=== PATIENT | female | born 1970 | race Caucasian/White ===

== ENCOUNTER 2016-06-02 09:55 | Emergency (ER) | payer OTHER ==
[~2016-06-02] VITALS: Wt 92.0 kg
[~2016-06-02 09:55] MED LIST: CEPH-443 PO; D-ME473S18 PO; DOCU-144 PO; IBUP-1542 PO; METF500T4 PO; OXYC-279 PO; TRAM-40 PO; TRAM50TA2 PO
[2016-06-02] MEDS ORDERED: BENZ100C70 PO (12:17)
[2016-06-02] MEDS ORDERED: OSLT75C PO (12:17)
[2016-06-02] MEDS ORDERED: METF500T4 PO (12:17)
[2016-06-02] MEDS ORDERED: ACET500C5 PO (12:17)
--- NOTE | 2016-06-02 12:35 | ERD ---
ER Documentation Chief Complaint Date/Time DATE: 06/02/16 TIME: 12:32 Chief Complaint 4 days of cough and congestion with no fever. no access muscle use/. HPI 45-year-old female with a past medical history of diabetes and hernia presents to the ED complaining of a dry cough, body aches, headache, congestion that started 4 days ago. Reports that her friend is also sick with similar symptoms. Patient's friend is the carpenter assistant at this time. Reports that she took some [id number] liquid cough medication which did not alleviate her symptoms. Denies any abdominal pain, nausea, vomiting, diarrhea, chest pain, shortness of breath, wheezing. Reports that she takes metformin daily. Her last menses was on May 30, 2016. ROS All systems reviewed and are negative except as per history of present illness. Medications Home Meds Active Scripts Metformin* (Glucophage*) 500 Mg Tab, 500 MG PO DAILY, #30 TAB Prov:ALBA MITCHELL PA-C 06/02/16 Benzonatate* (Tessalon Perle*) 100 Mg Capsule, 100 MG PO Q8H Y for COUGH, #20 CAP Prov:ALBA MITCHELL PA-C 06/02/16 Acetaminophen* (Tylophen*) 500 Mg Capsule, 1 CAP PO Q6H Y for PAIN AND OR ELEVATED TEMP, #20 CAP Prov:ALBA MITCHELL PA-C 06/02/16 Oseltamivir Phosphate* (Tamiflu*) 75 Mg Capsule, 75 MG PO BID for 5 Days, CAP Prov:ALBA MITCHELL PA-C 06/02/16 Tramadol HCl (Tramadol HCl) 50 Mg Tablet, 50 MG PO Q4 Y for PAIN, #30 TAB Prov:JOHNSON EVANS MD 02/29/16 Dextromethorphan Hb-Promethazine Hcl (Promethazine DM Syrup) 473 Ml Syrup, 5 ML PO Q6H Y for COUGH, #4 OZ Prov:JOHNSON EVANS MD 02/29/16 Metformin* (Glucophage*) 500 Mg Tab, 500 MG PO BID, #60 TAB Prov:JOHNSON EVANS MD 02/29/16 Oxycodone HCl/Acetaminophen (Percocet 5-325 mg Tablet) 1 Each Tablet, 1 EACH PO TID for PAIN, #12 TAB Prov:ANAIS LARRY MD 01/21/16 Ibuprofen* (Ibuprofen*) 600 Mg Tablet, 600 MG PO Q8 for PAIN AND/OR INFLAMMATION for 30 Days, TAB Prov:ANAIS LARRY MD 01/21/16 Metformin* (Glucophage*) 500 Mg Tab, 500 MG PO BID, #60 TAB Prov:ANAIS LARRY MD 01/21/16 Cephalexin* (Keflex*) 500 Mg Capsule, 500 MG PO QID for 7 Days, CAP Prov:JOHNSON EVANS MD 12/29/15 Tramadol HCl (Tramadol HCl) 50 Mg Tablet, 50 MG PO Q4 Y for PAIN, #30 TAB Prov:JOHNSON EVANS MD 12/29/15 Docusate Sodium* (Colace*) 100 Mg Capsule, 100 MG PO DAILY, #14 CAP Prov:MELVIN MIRANDA MD 12/25/15 Metformin* (Glucophage*) 500 Mg Tab, 500 MG PO BID, #60 TAB Prov:JOHNSON EVANS MD 08/13/15 Ibuprofen* (Motrin*) 600 Mg Tab, 600 MG PO Q6, #30 TAB Prov:DAYNA LAMAS PA-C 11/12/14 Reported Medications Tramadol Hcl* (Ultram*) 50 Mg Tablet, 50 MG PO Q4 Y for PAIN, TAB 12/25/15 Allergies Allergies: Coded Allergies: Penicillins (Verified Allergy, Mild, rash, 12/25/15) PMhx/Soc History of Surgery: Yes () Anesthesia Reaction: No Hx Neurological Disorder: No Hx Respiratory Disorders: No Hx Cardiac Disorders: No Hx Psychiatric Problems: No Hx Miscellaneous Medical Probl: Yes (DM, UMBILICAL HERNIA) Hx Alcohol Use: No Hx Substance Use: No Hx Tobacco Use: No Physical Exam Vitals Vital Signs Date Time Temp Pulse Resp B/P Pulse Ox O2 Delivery O2 Flow Rate FiO2 06/02/16 09:57 97.8 71 22 120/64 97 Physical Exam Const: [id number], well-nourished. In no acute distress. Head: Atraumatic, normocephalic Eyes: Normal Conjunctiva without injection. No purulent discharge. PERRL. EOMI ENT: Normal external ear. Ear canal without erythema. Tympanic membrane pearly haskins without effusion or bulging. Nasal canal clear with normal turbinates. Moist oropharynx without tonsillar exudates. Non-erythematous pharynx. Uvula midline. No drooling. No trismus. Neck: Full range of motion. No meningismus. No cervical lymphadenopathy. Resp: Clear to auscultation bilaterally. No wheezing, rhonchi, rales, or crackles. No accessory muscle use. No retractions. Cardio: Regular rate and rhythm. No murmurs, rubs or gallops. Abd: Soft, non tender, non distended. Normal bowel sounds. No palpable masses. No rebound tenderness. No guarding. Skin: No petechiae or rashes Back: No midline tenderness. No CVA tenderness. Ext: No cyanosis, or edema. Neur: Awake and alert. Psych: Normal Mood and Affect Procedures/MDM This is a 45-year-old female with no significant past medical history presents the ED complaining of a dry cough and congestion, body aches that started 4 days ago. Patient is afebrile and nontoxic-appearing. Patient has normal vital signs. Patient likely has flulike symptoms. Patient has a sick contact with similar symptoms. Patient has diabetes and is a high risk patient. Therefore Tamiflu will be prescribed for patient for further treatment. Patient 's physical exam include lungs which were clear to auscultation and a normal pulse oximetry. There is a low suspicion for pneumonia, pneumothorax, pulmonary embolism, epiglottitis, otitis media, otitis externa, viral/strep pharyngitis, sinusitis, peritonsillar abscess, mastoiditis, retropharyngeal abscess, meningitis, sepsis, acute abdomen or other emergent conditions. Fluids, rest, and symptomatic treatment are recommended for the management of patient's symptoms. Discharge medications: Metformin, Tessalon Perles, Tylenol Patient was instructed to return to the ED for any new or worsening symptoms. They should otherwise follow up with the primary care provider within 1-2 days. The patient's questions were answered at the time of discharge. Patient understood and agreed with discharge management. Departure Diagnosis: Primary Impression: Flu-like symptoms Condition: Stable Patient Instructions: Influenza (Adult) Referrals: [facility] Usted se singh hecho un examen mdico de control que le indica que no est en qi condicin que requiera tratamiento urgente en el Departamento de Emergencia. Un estudio ms profundo y el tratamiento de aden condicin pueden esperar sin ningn riesgo hasta que usted sea atendida/o en el consultorio de aden mdico o qi cl avril. Es responsabilidad suya arreglar qi jerry para el seguimiento del angel. MANEJO DE CONDICIONES NO URGENTES EN EL FUTURO 1) Si usted tiene un mdico de atencin primaria: Usted debera llamar a aden mdico de atencin primaria antes de venir al departamento de emergencia. Despus de las horas de consultorio, aden doctor o aden asociado/a est disponible por telfono. El mdico o enfermero de eleni en el servicio telefnico puede asesorarle por janet medio para atender el problema, o angel contrario se puede programar qi jerry. 2) Si usted no tiene un mdico de atencin primaria: Llame al mdico o clnica de referencia que aparece abajo omer las horas de consultorio para hacer qi jerry para que le vean. CLINICAS: [facility] [phone] [address] [facility] [phone] [address] [facility] [facility] [phone] [address] [facility] [place] [id number] [phone] [facility] [place] [id number] [phone] [facility]. [phone] [facility] () Usted se singh hecho un examen mdico de control que le indica que no est en qi condicin que requiera tratamiento urgente en el Departamento de Emergencia. Un estudio ms profundo y el tratamiento de aden condicin pueden esperar sin ningn riesgo hasta que usted sea atendida/o en el consultorio de aden mdico o qi cl avril. Es responsabilidad suya arreglar qi jerry para el seguimiento del angel. MANEJO DE CONDICIONES NO URGENTES EN EL FUTURO 1) Si usted tiene un mdico de atencin primaria: Usted debera llamar a aden mdico de atencin primaria antes de venir al departamento de emergencia. Despus de las horas de consultorio, aden doctor o aden asociado/a est disponible por telfono. El mdico o enfermero de eleni en el servicio telefnico puede asesorarle por janet medio para atender el problema, o angel contrario se puede programar qi jerry. 2) Si usted no tiene un mdico de atencin primaria: Llame al mdico o condado institucions de referencia que aparece abajo omer las horas de consultorio para hacer qi jerry para que le vean. SI USTED NO PUEDE PAGAR PARA LYNDA UN MEDICO puede ir a: [facility] [address] [place] [address] [facility] [address] [place] [address] [facility] [address] [place] [address] [facility] [address] [place] [address] [facility] URGENT CARE/SPECIALTIES Additional Instructions: Visite a aden mdico maana para un EXAMEN.Regrese a estas instalaciones si no se mejora an esperbamos o an le dijimos. ALBA MITCHELL PA-C Jun 02, 2016 12:34
== END 2016-06-02 12:29 | disposition home or self-care (01) ==
LOC: FTE 09:55
DX: R05 Cough (principal); R51 Headache; E11.9 Type 2 diabetes mellitus without complications; Z79.84 Long term (current) use of oral hypoglycemic drugs
CPT/HCPCS: 99284

== ENCOUNTER 2016-06-23 10:32 | Emergency (ER) | payer OTHER ==
[~2016-06-23] VITALS: Ht 152.4 cm; Wt 91.0 kg
[~2016-06-23 10:32] MED LIST changes: +ACET500C5 PO; +BENZ100C70 PO; +OSLT75C PO
[2016-06-23 10:36] VITALS: Ht 152.4 cm; Wt 91.0 kg
[2016-06-23] MEDS ORDERED: HYDROCODONE/APAP (5/325) TAB PO ONE (11:30)
--- NOTE | 2016-06-23 12:48 | RADRPT ---
PROCEDURE: US DVT. CLINICAL INDICATION: Right upper extremity pain. TECHNIQUE: Multiple longitudinal and transverse images of the right upper extremity veins were obt ained with haskins scale and color Doppler imaging. 2D grayscale measurements with compression, color Doppler flow, and augmentation was performed. COMPARISON: No prior studies are available for comparison. FINDINGS: The right jugular vein, subclavian vein, axillary vein, and brachial veins are normally compressible throughout. Color flow demonstrates normal filling of the vessel. Normal waveforms are visualized and there is normal response to augmentation. The right cephalic, basilic, radial and ulnar veins are unremarkable as well. IMPRESSION: 1. No evidence of a deep vein thrombosis involving the right upper extremity. RPTAT:AACC Physician Demetrio Date Time Electronically viewed and signed by Physician Demetrio on 06/23/2016 12:47 /
--- NOTE | 2016-06-23 13:28 | RADRPT ---
PROCEDURE: XR Cervical Spine. CLINICAL INDICATION: Cervical spine pain. TECHNIQUE: AP, lateral and odontoid views of the cervical spine were performed. The images were re viewed on a PACS workstation. COMPARISON: None available FINDINGS: There is trace retrolisthesis of C5 on C6. There are small anterior osteophytes with mild to modera te narrowing at C5-6. There are associated discogenic endplate changes at this level. The vertebra l body height and osseous mineralization are normal. There is no evidence of fracture or dislocation . There is mild facet arthropathy at C4-5 and C5-6. There is preservation of the remaining intervert ebral disc spaces. There are no abnormal calcifications. The prevertebral soft tissues are normal. N o radiopaque foreign bodies are identified. IMPRESSION: 1. Moderate degenerative disc disease at C5-6 with grade 1 retrolisthesis. 2. Diffuse mild facet spondylosis. 3. No acute fracture. RPTAT: HGAS .Harvey Pritchett MD, MD Date Time Electronically viewed and signed by .Harvey Pritchett MD, on 06/23/2016 13:28 .S/
[2016-06-23] MEDS ORDERED: TRAM50TA2 PO (13:36)
--- NOTE | 2016-06-23 13:56 | ERD ---
ER Documentation Chief Complaint Date/Time DATE: 06/23/16 TIME: 13:53 Chief Complaint BILATERAL ARM PAIN X 1 MONTH HPI 45-year-old female presents to the emergency heart present with bilateral upper arm extremity pain for the past 1 month, worse on the right side. She is in her right upper arm including the forearm, she also has had diffuse neck pain for the past month associated with this pain. It is described as sharp, achy, worse with movement. She denies any trauma. Denies fevers or chills, shortness of breath or chest pain. ROS All systems reviewed and are negative except as per history of present illness. Medications Home Meds Active Scripts Tramadol HCl (Tramadol HCl) 50 Mg Tablet, 50 MG PO Q4 Y for PAIN, #20 TAB Prov:SADAF ADAMOSN PA-C 06/23/16 Metformin* (Glucophage*) 500 Mg Tab, 500 MG PO DAILY, #30 TAB Prov:ALBA MITCHELL PA-C 06/02/16 Benzonatate* (Tessalon Perle*) 100 Mg Capsule, 100 MG PO Q8H Y for COUGH, #20 CAP Prov:ALBA MITCHELL PA-C 06/02/16 Acetaminophen* (Tylophen*) 500 Mg Capsule, 1 CAP PO Q6H Y for PAIN AND OR ELEVATED TEMP, #20 CAP Prov:ALBA MITCHELL PA-C 06/02/16 Oseltamivir Phosphate* (Tamiflu*) 75 Mg Capsule, 75 MG PO BID for 5 Days, CAP Prov:ALBA MITCHELL PA-C 06/02/16 Tramadol HCl (Tramadol HCl) 50 Mg Tablet, 50 MG PO Q4 Y for PAIN, #30 TAB Prov:JOHNSON EVANS MD 02/29/16 Dextromethorphan Hb-Promethazine Hcl (Promethazine DM Syrup) 473 Ml Syrup, 5 ML PO Q6H Y for COUGH, #4 OZ Prov:JOHNSON EVANS MD 02/29/16 Metformin* (Glucophage*) 500 Mg Tab, 500 MG PO BID, #60 TAB Prov:JOHNSON EVANS MD 02/29/16 Oxycodone HCl/Acetaminophen (Percocet 5-325 mg Tablet) 1 Each Tablet, 1 EACH PO TID for PAIN, #12 TAB Prov:ANAIS LARRY MD 01/21/16 Ibuprofen* (Ibuprofen*) 600 Mg Tablet, 600 MG PO Q8 for PAIN AND/OR INFLAMMATION for 30 Days, TAB Prov:ANAIS LARRY MD 01/21/16 Metformin* (Glucophage*) 500 Mg Tab, 500 MG PO BID, #60 TAB Prov:ANAIS LARRY MD 01/21/16 Cephalexin* (Keflex*) 500 Mg Capsule, 500 MG PO QID for 7 Days, CAP Prov:JOHNSON EVANS MD 12/29/15 Tramadol HCl (Tramadol HCl) 50 Mg Tablet, 50 MG PO Q4 Y for PAIN, #30 TAB Prov:JOHNSON EVANS MD 12/29/15 Docusate Sodium* (Colace*) 100 Mg Capsule, 100 MG PO DAILY, #14 CAP Prov:MELVIN MIRANDA MD 12/25/15 Metformin* (Glucophage*) 500 Mg Tab, 500 MG PO BID, #60 TAB Prov:JOHNSON EVANS MD 08/13/15 Ibuprofen* (Motrin*) 600 Mg Tab, 600 MG PO Q6, #30 TAB Prov:DAYNA LAMAS PA-C 11/12/14 Reported Medications Tramadol Hcl* (Ultram*) 50 Mg Tablet, 50 MG PO Q4 Y for PAIN, TAB 12/25/15 Allergies Allergies: Coded Allergies: Penicillins (Verified Allergy, Mild, rash, 12/25/15) PMhx/Soc History of Surgery: Yes () Anesthesia Reaction: No Hx Neurological Disorder: No Hx Respiratory Disorders: No Hx Cardiac Disorders: Yes (HDL) Hx Psychiatric Problems: No Hx Miscellaneous Medical Probl: Yes (DM, UMBILICAL HERNIA, CHRONIC BACK PAIN) Hx Alcohol Use: No Hx Substance Use: No Hx Tobacco Use: No Smoking Status: Never smoker Physical Exam Vitals Vital Signs Date Time Temp Pulse Resp B/P Pulse Ox O2 Delivery O2 Flow Rate FiO2 06/23/16 10:36 98.0 98 18 121/72 99 Physical Exam General: Obese female, no distress HEENT: Head is normocephalic, atraumatic. No scleral icterus. Pupils are equal , round, and reactive. Neck: Supple. Diffuse tenderness, including C5-C6. Lungs: Clear to auscultation. Normal air movement. Heart: Regular rate and rhythm. S1 and S2 are normal. No murmurs, gallops, or rubs. Abdomen: Soft, nontender, nondistended. Bowel sounds are normoactive. Extremities: No swelling, moving extremities 4, no cyanosis. Radial, ulnar, median nerves intact bilaterally. Capillary refill less than 2 seconds. Neurologic: Alert and oriented 3. No focal deficits. Skin: Normal turgor. No rash or lesions. Results 24 hrs Current Medications Medications (Trade) Dose Ordered Sig/Jayme Route PRN Reason Start Time Stop Time Status Last Admin Dose Admin Acetaminophen/ Hydrocodone Bitart ([place] (5/325)) 1 tab ONCE ONCE PO 06/23/16 11:30 06/23/16 11:31 DC 06/23/16 11:48 PROCEDURE: US DVT. CLINICAL INDICATION: Right upper extremity pain. TECHNIQUE: Multiple longitudinal and transverse images of the right upper extremity veins were obtained with haskins scale and color Doppler imaging. 2D grayscale measurements with compression, color Doppler flow, and augmentation was performed. COMPARISON: No prior studies are available for comparison. FINDINGS: The right jugular vein, subclavian vein, axillary vein, and brachial veins are normally compressible throughout. Color flow demonstrates normal filling of the vessel. Normal waveforms are visualized and there is normal response to augmentation. The right cephalic, basilic, radial and ulnar veins are unremarkable as well. IMPRESSION: 1. No evidence of a deep vein thrombosis involving the right upper extremity. RPTAT:AACC Physician Demetrio Date Time Electronically viewed and signed by Physician Demetrio on 06/23/2016 12: 47 JH/ PROCEDURE: XR Cervical Spine. CLINICAL INDICATION: Cervical spine pain. TECHNIQUE: AP, lateral and odontoid views of the cervical spine were performed. The images were reviewed on a PACS workstation. COMPARISON: None available FINDINGS: There is trace retrolisthesis of C5 on C6. There are small anterior osteophytes with mild to moderate narrowing at C5-6. There are associated discogenic endplate changes at this level. The vertebral body height and osseous mineralization are normal. There is no evidence of fracture or dislocation. There is mild facet arthropathy at C4-5 and C5-6. There is preservation of the remaining intervertebral disc spaces. There are no abnormal calcifications. The prevertebral soft tissues are normal. No radiopaque foreign bodies are identified. IMPRESSION: 1. Moderate degenerative disc disease at C5-6 with grade 1 retrolisthesis. 2. Diffuse mild facet spondylosis. 3. No acute fracture. RPTAT: HGAS .Harvey Pritchett MD, MD Date Time Electronically viewed and signed by .Harvey Pritchett MD, on 06/23/2016 13: 28 Procedures/MDM 45-year-old female presents to the ER with right-sided arm pain, as well as left intermittent for the past month associated with neck pain. Patient's differential diagnosis includes cervical radiculopathy, cellulitis, abscess, tendinitis, fracture, dislocation, DVT. X-ray of the cervical spine shows C5- C6 anterolisthesis. No acute fracture. Duplex venous study of the right upper extremity was negative for DVT. This appears to be musculoskeletal pain, there are no signs of any arterial injury, limb threatening process, or infectious process. Departure Diagnosis: Primary Impression: Pain of right arm Condition: Good Patient Instructions: Radiculopathy, Cervical Additional Instructions: Llame al doctor MAANA y ned qi GENARO PARA DENTRO DE 1-2 HASSAN.Dgale a la secretaria que nosotros le instruimos hacer esta genaro.Avise o llame si aden condicin se empeora antes de la genaro. Regresa aqui si peor o no mejor. SADAF ADAMSON PA-C Jun 23, 2016 13:56
== END 2016-06-23 14:01 | disposition home or self-care (01) ==
LOC: FTE 10:32
DX: M79.601 Pain in right arm (principal); E11.9 Type 2 diabetes mellitus without complications; Z79.84 Long term (current) use of oral hypoglycemic drugs
CPT/HCPCS: 72040; 93971; Z7502; Z7610

== ENCOUNTER 2016-11-29 09:28 | Emergency (ER) | payer OTHER ==
[~2016-11-29] VITALS: Ht 157.5 cm; Wt 97.5 kg
[2016-11-29 09:46] VITALS: Ht 157.5 cm; Wt 97.5 kg
[2016-11-29] MEDS ORDERED: SOD CHLORIDE 0.9% 1,000 ML IV STA (11:50)
[2016-11-29 12:18] LABS: BASOPHILS % 0.3 % (0.0-2.0); EOSINOPHILS # 0.1 10^3/ul (0.0-0.5); EOSINOPHILS % 0.9 % (0.0-7.0); HEMATOCRIT 37.2 % (37.0-47.0); HEMOGLOBIN 12.2 g/dl (12.0-16.0); LYMPHOCYTES # 3.5 10^3/ul (0.8-2.9); LYMPHOCYTES % 33.7 % (15.0-51.0); MEAN CORPUSCULAR HEMOGLOBIN 27.4 pg (29.0-33.0); MEAN CORPUSCULAR HGB CONC 32.8 g/dl (32.0-37.0); MEAN CORPUSCULAR VOLUME 83.4 fl (82.0-101.0); MEAN PLATELET VOLUME 9.6 fl (7.4-10.4); MONOCYTE # 0.5 10^3/ul (0.3-0.9); MONOCYTES % 5.1 % (0.0-11.0); NEUTROPHILS % 59.7 % (39.0-77.0); PLATELET COUNT 349 10^3/UL (140-415); RED BLOOD COUNT 4.46 10^6/ul (4.20-5.40); RED CELL DISTRIBUTION WIDTH 14.6 % (11.5-14.5); WHITE BLOOD COUNT 10.4 10^3/ul (4.8-10.8)
[2016-11-29 12:35] LABS: ALBUMIN 3.8 g/dl (3.3-4.9); ALBUMIN/GLOBULIN RATIO 1.15; BILIRUBIN,INDIRECT 0.3 mg/dl (0-1.1); BILIRUBIN,TOTAL 0.3 mg/dl (0.2-1.3); CALCIUM 8.9 mg/dl (8.4-10.2); CREATININE 0.59 mg/dl (0.44-1.00); POTASSIUM 3.7 mmol/L (3.5-5.1); TOTAL PROTEIN 7.1 g/dl (6.1-8.1)
[2016-11-29 12:43] LABS: ADD UMIC YES; UR ASCORBIC ACID NEGATIVE (NEGATIVE); UR BACTERIA FEW /HPF (NONE SEEN); UR BILIRUBIN (Dip) NEGATIVE (NEGATIVE); UR BLOOD (Dip) 1+ mg/dL (NEGATIVE); UR CLARITY CLOUDY (CLEAR); UR COLOR YELLOW (YELLOW); UR GLUCOSE (Dip) NEGATIVE (NEGATIVE); UR KETONES (Dip) NEGATIVE (NEGATIVE); UR LEUKOCYTE ESTERASE (Dip) 2+ Leu/ul (NEGATIVE); UR MUCUS MODERATE /HPF (NONE SEEN); UR NITRITE (Dip) POSITIVE (NEGATIVE); UR RBC 7 /HPF (0-5); UR SPECIFIC GRAVITY (Dip) 1.021 (1.003-1.030); UR SQUAMOUS EPITHELIAL CELL MODERATE /HPF (FEW); UR TOTAL PROTEIN (Dip) NEGATIVE (NEGATIVE); UR UROBILINOGEN (Dip) NEGATIVE (NEGATIVE)
--- NOTE | 2016-11-29 12:49 | RADRPT ---
PROCEDURE: US Abdomen. CLINICAL INDICATION: abdominal pain TECHNIQUE: Multiple real-time images were acquired of the patient's right upper quadrant abdomen a nd retroperitoneum utilizing a high resolution transducer. COMPARISON: None FINDINGS: The study is limited due to a large hernia in the umbilical region. The liver demonstrates increased echogenicity. The liver is normal in size and no focal solid lesio ns are seen. The liver measures 17.1 cm in length. The portal vein is patent with normal direction o f flow. No intrahepatic biliary dilatation is seen. There is a single 2.4 cm calcified stone within the gallbladder. There is no pericholecystic fluid or gallbladder wall thickening. The common bile duct measures 2 mm in maximal dimension. The pancreas is not seen due to overlying bowel gas. No free fluid is identified. The right kidney is normal in size, and demonstrate normal echogenicity and cortical thickness. The right kidney measures 9.9 cm in long dimension. There is no evidence of hydronephrosis. There are no kidney stones. RPTAT: AA IMPRESSION: Single calcified stone within the gallbladder. Fatty infiltration of the liver. .Nico Noyola MD MD Date Time Electronically viewed and signed by .Nico Noyola MD, MD on 11/29/2016 12:49 .S/
[2016-11-29] MEDS ORDERED: ACET325T33 PO (12:58)
[2016-11-29] MEDS ORDERED: CEPH-443 PO (12:58)
[2016-11-29] MEDS ORDERED: METF500T4 PO (12:58)
--- NOTE | 2016-11-29 13:02 | ERD ---
ER Documentation Chief Complaint Date/Time DATE: 11/29/16 TIME: 13:00 Chief Complaint ap hernia area starting yesterday; no n/v HPI 36-year-old female history of diabetes type 2, large umbilical hernia presents to the emergency department complaining of localized right upper quadrant abdominal pain intermittent 5 out of 10 since yesterday patient denies any nausea, vomiting, fevers. She also admits to having mild pelvic pain. Denies any dysuria denies taking any medications for this ROS All systems reviewed and are negative except as per history of present illness. Medications Home Meds Active Scripts Acetaminophen* (Tylenol*) 325 Mg Tablet, 2 TAB PO Q6 Y for PAIN AND OR ELEVATED TEMP, #20 TAB Prov:NANCY HOWARD PA-C 11/29/16 Cephalexin* (Keflex*) 500 Mg Capsule, 500 MG PO QID for 7 Days, CAP Prov:NANCY HOWARDC 11/29/16 Metformin* (Glucophage*) 500 Mg Tab, 500 MG PO BID, #30 TAB Prov:NANCY HOWARDC 11/29/16 Tramadol HCl (Tramadol HCl) 50 Mg Tablet, 50 MG PO Q4 Y for PAIN, #20 TAB Prov:SADAF ADAMSON PA-C 06/23/16 Metformin* (Glucophage*) 500 Mg Tab, 500 MG PO DAILY, #30 TAB Prov:ALBA MITCHELL PA-C 06/02/16 Benzonatate* (Tessalon Perle*) 100 Mg Capsule, 100 MG PO Q8H Y for COUGH, #20 CAP Prov:ALBA MITCHELL PA-C 06/02/16 Acetaminophen* (Tylophen*) 500 Mg Capsule, 1 CAP PO Q6H Y for PAIN AND OR ELEVATED TEMP, #20 CAP Prov:ALBA MITCHELL PA-C 06/02/16 Oseltamivir Phosphate* (Tamiflu*) 75 Mg Capsule, 75 MG PO BID for 5 Days, CAP Prov:ALBA MITCHELLC 06/02/16 Tramadol HCl (Tramadol HCl) 50 Mg Tablet, 50 MG PO Q4 Y for PAIN, #30 TAB Prov:JOHNSON EVANS MD 02/29/16 Dextromethorphan Hb-Promethazine Hcl (Promethazine DM Syrup) 473 Ml Syrup, 5 ML PO Q6H Y for COUGH, #4 OZ Prov:JOHNSON EVANS MD 02/29/16 Metformin* (Glucophage*) 500 Mg Tab, 500 MG PO BID, #60 TAB Prov:JOHNSON EVANS MD 02/29/16 Oxycodone HCl/Acetaminophen (Percocet 5-325 mg Tablet) 1 Each Tablet, 1 EACH PO TID for PAIN, #12 TAB Prov:ANAIS LARRY MD 01/21/16 Ibuprofen* (Ibuprofen*) 600 Mg Tablet, 600 MG PO Q8 for PAIN AND/OR INFLAMMATION for 30 Days, TAB Prov:ANAIS ALRRY MD 01/21/16 Metformin* (Glucophage*) 500 Mg Tab, 500 MG PO BID, #60 TAB Prov:ANAIS LARRY MD 01/21/16 Cephalexin* (Keflex*) 500 Mg Capsule, 500 MG PO QID for 7 Days, CAP Prov:JOHNSON EVANS MD 12/29/15 Tramadol HCl (Tramadol HCl) 50 Mg Tablet, 50 MG PO Q4 Y for PAIN, #30 TAB Prov:JOHNSON EVANS MD 12/29/15 Docusate Sodium* (Colace*) 100 Mg Capsule, 100 MG PO DAILY, #14 CAP Prov:MELVIN MIRANDA MD 12/25/15 Metformin* (Glucophage*) 500 Mg Tab, 500 MG PO BID, #60 TAB Prov:JOHNSON EVANS MD 08/13/15 Ibuprofen* (Motrin*) 600 Mg Tab, 600 MG PO Q6, #30 TAB Prov:DAYNA LAMAS PA-C 11/12/14 Reported Medications Tramadol Hcl* (Ultram*) 50 Mg Tablet, 50 MG PO Q4 Y for PAIN, TAB 12/25/15 Allergies Allergies: Coded Allergies: Penicillins (Verified Allergy, Mild, rash, 12/25/15) PMhx/Soc History of Surgery: Yes () Anesthesia Reaction: No Hx Neurological Disorder: No Hx Respiratory Disorders: No Hx Cardiac Disorders: Yes (HDL) Hx Psychiatric Problems: No Hx Miscellaneous Medical Probl: Yes (DM, UMBILICAL HERNIA, CHRONIC BACK PAIN) Hx Alcohol Use: No Hx Substance Use: No Hx Tobacco Use: No Smoking Status: Never smoker Physical Exam Vitals Vital Signs Date Time Temp Pulse Resp B/P Pulse Ox O2 Delivery O2 Flow Rate FiO2 11/29/16 09:46 98.0 72 18 105/59 98 Physical Exam GENERAL: well-developed/well-nourished, in no apparent distress, non-toxic appearing HENT: NC/AT, moist mucous membranes EYES: Conjunctiva normal NECK: Supple, no lymphadenopathy PULM: CTA bilaterally, no rales, rhonchi, or wheezing heard CV: Normal S1S2, RRR, good capillary refill GI: Soft, large umbilical hernia that does not appear to be incarcerated or strangulate, tender to palpation upper quadrant Normal bowel sounds, no masses or organomegaly felt on exam No gross peritonitis, no bruits Negative Rovsing, negative Wolff, negative McBurney's point, Negative CVAT BACK: No masses EXT: No clubbing, cyanosis, or edema NEURO: Alert and Orientated SKIN: Intact, normal turgor PSYCH: Normal mood and mentation Result Diagram: 11/29/16 1152 11/29/16 1152 Results 24 hrs Laboratory Tests Test 11/29/16 11:52 White Blood Count 10.410^3/ul Red Blood Count 4.4610^6/ul Hemoglobin 12.2g/dl Hematocrit 37.2% Mean Corpuscular Volume 83.4fl Mean Corpuscular Hemoglobin 27.4pg Mean Corpuscular Hemoglobin Concent 32.8g/dl Red Cell Distribution Width 14.6% Platelet Count 64872^3/UL Mean Platelet Volume 9.6fl Neutrophils % 59.7% Lymphocytes % 33.7% Monocytes % 5.1% Eosinophils % 0.9% Basophils % 0.3% Nucleated Red Blood Cells % 0.0/100WBC Neutrophils # (Manual) 6.210^3/ul Lymphocytes # 3.510^3/ul Monocytes # 0.510^3/ul Eosinophils # 0.110^3/ul Basophils # 0.010^3/ul Nucleated Red Blood Cells # 0.010^3/ul Urine Color YELLOW Urine Clarity CLOUDY Urine pH 5.0 Urine Specific [place] 1.021 Urine Ketones NEGATIVEmg/dL Urine Nitrite POSITIVEmg/dL Urine Bilirubin NEGATIVEmg/dL Urine Urobilinogen NEGATIVEmg/dL Urine Leukocyte Esterase 2+Nereida/ul Urine Microscopic RBC 7/HPF Urine Microscopic WBC 45/HPF Urine Squamous Epithelial Cells MODERATE/HPF Urine Bacteria FEW/HPF Urine Mucus MODERATE/HPF Urine Hemoglobin 1+mg/dL Urine Glucose NEGATIVEmg/dL Urine Total Protein NEGATIVEmg/dl Sodium Level 138mmol/L Potassium Level 3.7mmol/L Chloride Level 107mmol/L Carbon Dioxide Level 24mmol/L Anion Gap 11 Blood Urea Nitrogen 13mg/dl Creatinine 0.59mg/dl Glucose Level 97mg/dl Calcium Level 8.9mg/dl Total Bilirubin 0.3mg/dl Direct Bilirubin 0.00mg/dl Indirect Bilirubin 0.3mg/dl Aspartate Amino Transf (AST/SGOT) 18IU/L Alanine Aminotransferase (ALT/SGPT) 29IU/L Alkaline Phosphatase 77IU/L Total Protein 7.1g/dl Albumin 3.8g/dl Globulin 3.30g/dl Albumin/Globulin Ratio 1.15 Lipase 52U/L Current Medications Medications (Trade) Dose Ordered Sig/Jayme Route PRN Reason Start Time Stop Time Status Last Admin Dose Admin Sodium Chloride (NS) 1,000 ml @ 1,000 mls/hr Q1H STAT IV 11/29/16 11:50 11/29/16 12:49 DC 11/29/16 12:23 Procedures/MDM 46-year-old female with diabetes type 2, umbilical hernia presents complaining of right upper quadrant abdominal pain since yesterday. Patient was found to have a single calcified gallstone without any evidence of biliary obstruction or cholecystitis. In addition patient's urine showed evidence of infection and she will be empirically treated with Keflex. [I doubt patient has sepsis, choledocholithiasis, cholecystitis or cholangitis, pancreatitis or other acute abdomen conditions due to physical examination and diagnostic testing. Patient appears well and nontoxic appearing with stable vital signs. Diagnostic testing and instructions were given to patient. Pain control prescriptions were provided for outpatient self-care. Discussed with patient to follow-up with primary care for GI referral. Precautions were given to return to the ER for fever, intractable pain, increased vomiting, and other worsening signs and symptoms. Patient expressed agreement and understanding of this plan.] Departure Diagnosis: Primary Impression: Cholelithiasis Additional Impression: UTI (urinary tract infection) Condition: Stable Patient Instructions: Understanding Urinary Tract Infections (UTIs), Gallstones Additional Instructions: FOLLOW UP WITH YOUR PRIMARY CARE PHYSICIAN TOMORROW.Return to this facility if you are not improving as expected. Take all medicines as directed. Return to this facility if you are not improving as expected. Visite a aden mdamita santiago para un EXAMEN.Regrese a estas instalaciones si no se mejora an esperbamos o an le dijimos.[place] toda la medicina zulema y an se le indic. Regrese a estas instalaciones si no se mejora an esperbamos o an le dijimos. NANCY HOWARD PA-C Nov 29, 2016 13:02
[2016-11-29 13:20] VITALS: BP 110/60; PULSE 78; RESP 16; TEMP 98.4
== END 2016-11-29 13:20 | disposition home or self-care (01) ==
LOC: FTE 09:28
DX: K80.20 Calculus of gallbladder without cholecystitis without obstruction (principal); N39.0 Urinary tract infection, site not specified; E11.9 Type 2 diabetes mellitus without complications; Z79.84 Long term (current) use of oral hypoglycemic drugs
CPT/HCPCS: 36415; 76705; 80053; 81001; 83690; 85025; 96360; J7030; Z7502

== ENCOUNTER 2017-02-02 12:03 | Emergency (ER) | payer OTHER ==
[~2017-02-02] VITALS: Ht 162.6 cm; Wt 111.0 kg
[~2017-02-02 12:03] MED LIST changes: +ACET325T33 PO
[2017-02-02 12:07] VITALS: Ht 162.6 cm; Wt 111.0 kg
[2017-02-02 13:54] LABS: URINE BLOOD (Dip) POC 2+ (NEGATIVE)
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
[2017-02-02] MEDS ORDERED: TRAM50TA2 PO (14:17)
[2017-02-02] MEDS ORDERED: CEPH-443 PO (14:17)
[2017-02-02] MEDS ORDERED: METF500T4 PO (14:17)
== END 2017-02-02 14:39 | disposition home or self-care (01) ==
LOC: FTE 12:03
DX: Z76.0 Encounter for issue of repeat prescription (principal); E11.9 Type 2 diabetes mellitus without complications; E66.9 Obesity, unspecified; N39.0 Urinary tract infection, site not specified; Z79.84 Long term (current) use of oral hypoglycemic drugs
CPT/HCPCS: 81003; 82962; Z7502; 99281

== ENCOUNTER 2017-04-05 10:31 | Emergency (ER) | END 2017-04-05 14:27 | disposition home or self-care (01) ==

== ENCOUNTER 2018-08-27 11:36 | Emergency (ER) | payer OTHER ==
[~2018-08-27] VITALS: Ht 160 cm; Wt 100.3 kg
[~2018-08-27 11:36] MED LIST changes: +ASPI-826 PO; +AZIT250T PO; +BENZ-6 PO; -BENZ100C70 PO; +METF-849 PO; -METF500T4 PO; +OSEL75CA23 PO; -OSLT75C PO; -TRAM-40 PO; +TRAM50TA PO
[2018-08-27 11:45] VITALS: BP 127/60; PULSE 99; RESP 18; Ht 160 cm; Wt 100.3 kg
--- NOTE | 2018-08-27 12:56 | ERD ---
ER Documentation Chief Complaint Chief Complaint painful ventral hernia need medication for pain HPI The patient is a 47-year-old female, presenting to the ER requesting pain medication for her chronic ventral hernia pain. She denies fever, chills, vomiting, dysuria, diarrhea, constipation. She does not smoke nor drink Past medical history: Diabetes mellitus, chronic low back pain, ventral hernia Past surgical history: ROS All systems reviewed and are negative except as per history of present illness. Medications Home Meds Active Scripts Tramadol HCl (Tramadol HCl) 50 Mg Tablet, 50 MG PO Q6 PRN for PAIN, #10 TAB Prov:JAMEY GARRISON MD 08/27/18 Reported Medications [Tab-A Zi] No Conflict Check, 1 TAB PO DAILY 08/27/18 Loratadine* (Loratadine*) 10 Mg Tablet, 10 MG PO DAILY, #30 TAB 08/27/18 Discontinued Reported Medications Tramadol Hcl* (Ultram*) 50 Mg Tablet, 50 MG PO Q4 PRN for PAIN, TAB 12/25/15 Discontinued Scripts Azithromycin* (Zithromax*) 250 Mg Tablet, 250 MG PO .ALVACK DIRECTED, #6 TAB TAKE 500 MG (2 TABS) THE FIRST DAY THEN 250 MG (1 TAB) DAYS 2-5 Prov:ALBA MITCHELL PA-C 04/17/18 Acetaminophen* (Tylophen*) 500 Mg Capsule, 1 CAP PO Q6H PRN for PAIN AND OR ELEVATED TEMP, #20 CAP Prov:ALBA MITCHELL PA-C 04/17/18 Benzonatate* (Tessalon Perle*) 100 Mg Capsule, 100 MG PO Q8H PRN for COUGH, #20 CAP Prov:ALBA MITCHELL PA-C 04/17/18 Aspirin/Acetaminophen/Caffeine (Excedrin Extra Strength Caplet) 1 Each Tablet, 1 EACH PO Q6, #30 TAB Prov:NAIMA CANTU NP 04/05/17 Tramadol HCl (Tramadol HCl) 50 Mg Tablet, 50 MG PO Q4 PRN for PAIN, #20 TAB Prov:SADAF ADAMSON PA-C 02/02/17 Metformin* (Glucophage*) 500 Mg Tab, 500 MG PO BID, #60 TAB Prov:SADAF ADAMSON PA-C 02/02/17 Cephalexin* (Keflex*) 500 Mg Capsule, 500 MG PO TID for 7 Days, CAP Prov:SADAF ADAMSON PA-C 02/02/17 Acetaminophen* (Tylenol*) 325 Mg Tablet, 2 TAB PO Q6 PRN for PAIN AND OR ELEVATED TEMP, #20 TAB Prov:NANCY HOWARDC 11/29/16 Cephalexin* (Keflex*) 500 Mg Capsule, 500 MG PO QID for 7 Days, CAP Prov:NANCY HOWARDC 11/29/16 Metformin* (Glucophage*) 500 Mg Tab, 500 MG PO BID, #30 TAB Prov:NANCY HOWARDC 11/29/16 Tramadol HCl (Tramadol HCl) 50 Mg Tablet, 50 MG PO Q4 PRN for PAIN, #20 TAB Prov:SADAF ADAMSON PA-C 06/23/16 Metformin* (Glucophage*) 500 Mg Tab, 500 MG PO DAILY, #30 TAB Prov:ALBA MITCHELL PA-C 06/02/16 Benzonatate* (Tessalon Perle*) 100 Mg Capsule, 100 MG PO Q8H PRN for COUGH, #20 CAP Prov:ALBA MITCHELL PA-C 06/02/16 Acetaminophen* (Tylophen*) 500 Mg Capsule, 1 CAP PO Q6H PRN for PAIN AND OR ELEVATED TEMP, #20 CAP Prov:ALBA MITCHELL PA-C 06/02/16 Oseltamivir Phosphate* (Tamiflu*) 75 Mg Capsule, 75 MG PO BID for 5 Days, CAP Prov:ALBA MITCHELL PA-C 06/02/16 Tramadol HCl (Tramadol HCl) 50 Mg Tablet, 50 MG PO Q4 PRN for PAIN, #30 TAB Prov:JOHNSON EVANS MD 02/29/16 Dextromethorphan Hb-Promethazine Hcl (Promethazine DM Syrup) 473 Ml Syrup, 5 ML PO Q6H PRN for COUGH, #4 OZ Prov:JOHNSON EVANS MD 02/29/16 Metformin* (Glucophage*) 500 Mg Tab, 500 MG PO BID, #60 TAB Prov:JOHNSON EVANS MD 02/29/16 Oxycodone HCl/Acetaminophen (Percocet 5-325 mg Tablet) 1 Each Tablet, 1 EACH PO TID for PAIN, #12 TAB Prov:ANAIS LARRY MD 01/21/16 Ibuprofen* (Ibuprofen*) 600 Mg Tablet, 600 MG PO Q8 for PAIN AND/OR INFLAMMATION for 30 Days, TAB Prov:ANAIS LARRY MD 01/21/16 Metformin* (Glucophage*) 500 Mg Tab, 500 MG PO BID, #60 TAB Prov:ANAIS LARRY MD 01/21/16 Cephalexin* (Keflex*) 500 Mg Capsule, 500 MG PO QID for 7 Days, CAP Prov:JOHNSON EVANS MD 12/29/15 Tramadol HCl (Tramadol HCl) 50 Mg Tablet, 50 MG PO Q4 PRN for PAIN, #30 TAB Prov:JOHNSON EVANS MD 12/29/15 Docusate Sodium* (Colace*) 100 Mg Capsule, 100 MG PO DAILY, #14 CAP Prov:MELVIN MIRANDA MD 12/25/15 Metformin* (Glucophage*) 500 Mg Tab, 500 MG PO BID, #60 TAB Prov:JOHNSON EVANS MD 08/13/15 Ibuprofen* (Motrin*) 600 Mg Tab, 600 MG PO Q6, #30 TAB Prov:DAYNA LAMAS PA-C 11/12/14 Allergies Allergies: Coded Allergies: Penicillins (Verified Allergy, Mild, rash, 08/27/18) PMhx/Soc History of Surgery: Yes () Anesthesia Reaction: No Hx Neurological Disorder: No Hx Respiratory Disorders: No Hx Cardiac Disorders: Yes (HDL) Hx Psychiatric Problems: No Hx Miscellaneous Medical Probl: Yes (DM, UMBILICAL HERNIA, CHRONIC BACK PAIN) Hx Alcohol Use: No Hx Substance Use: No Hx Tobacco Use: No Physical Exam Vitals Vital Signs Date Temp Pulse Resp B/P (MAP) Pulse Ox O2 O2 Flow FiO2 Time Delivery Rate 08/27/18 98.6 99 18 127/60 98 11:45 (82) Physical Exam Const: No acute distress. Head: Atraumatic. Eyes: Normal Conjunctiva. ENT: Normal External Ears, Nose and Mouth. Neck: Full range of motion. No meningismus. Resp: Clear to auscultation bilaterally. Cardio: Regular rate and rhythm. Abd: Soft, nontender chronic ventral hernia, normal bowel sounds, non tender. Skin: No petechiae or rashes. Back: No midline or flank tenderness. Ext: No cyanosis, or edema. Neur: Awake and alert. No focal deficit Psych: Normal Mood and Affect. Procedures/MDM MEDICAL MAKING DECISION: The patient is a 47-year-old female, presenting with chronic ventral hernia pain, is stable for outpatient follow-up The differential diagnoses considered include but are not limited to incarcerated/strangulated hernia, constipation, cystitis, cholelithiasis Departure Diagnosis: Primary Impression: Ventral hernia Condition: Good Comments She was discharged with 10 tablets of tramadol I discussed the findings with the patient. I advised the patient to follow-up with the primary physician in about 1-2 days reevaluation referred to general surgery for elective surgery, sooner if needed and return if any concern. Disclaimer: Inadvertent spelling and grammatical errors are likely due to EHR/dictation software use and do not reflect on the overall quality of patient care. Also, please note that the electronic time recorded on this note does not necessarily reflect the actual time of the patient encounter. JAMEY GARRISON MD Aug 27, 2018 12:56
[2018-08-27] MEDS ORDERED: TRAM50TA2 PO (13:05)
[2018-08-27] MEDS ORDERED: LORA10TA3 PO (13:08)
[2018-08-27] MEDS ORDERED: A VITE PO (13:11)
== END 2018-08-27 14:05 | disposition home or self-care (01) ==
LOC: E/R 11:36
DX: K43.9 Ventral hernia without obstruction or gangrene (principal); E11.9 Type 2 diabetes mellitus without complications
CPT/HCPCS: 99283

== ENCOUNTER 2019-01-09 11:26 | Inpatient (IN) | payer OTHER ==
[~2019-01-09] VITALS: Ht 157.5 cm; Wt 110.0 kg
[2019-01-09] VITALS (18 sets, daily range): BP systolic 91–127; BP diastolic 56–78; PULSE 74–102; RESP 13–24
[~2019-01-09 11:26] MED LIST changes: +A VITE PO; -ACET325T33 PO; -ACET500C5 PO; -ASPI-826 PO; -AZIT250T PO; -BENZ-6 PO; -CEPH-443 PO; -D-ME473S18 PO; -DOCU-144 PO; -IBUP-1542 PO; +LORA10TA3 PO; -METF-849 PO; +ONDA4TAB8 PO; -OSEL75CA23 PO; -OXYC-279 PO; +OXYC-438 PO; -TRAM50TA PO
[2019-01-09] MEDS ORDERED: ACETAMINOPHEN 325 MG TAB PO PRN (17:00)
[2019-01-09] MEDS ORDERED: ONDANSETRON 4 MG INJ IV PRN ×3 (17:00→20:30)
[2019-01-09] MEDS ORDERED: LEVOFLOXACIN 750MG/D5W (PMX) 150 ML IVPB ONE (17:00)
[2019-01-09] MEDS ORDERED: DIPHENHYDRAMINE 50 MG INJ IV PRN (19:30)
[2019-01-09] MEDS ORDERED: MEPERIDINE 25 MG INJ IV PRN (19:30)
[2019-01-09] MEDS ORDERED: LABETALOL HCL 20MG INJ IV PRN (19:30)
[2019-01-09] MEDS ORDERED: HYDROmorphONE 1 MG/5 ML IV SYRINGE IV PRN ×2 (19:30)
[2019-01-09] MEDS ORDERED: hydrALAzine 20 MG INJ IV PRN (19:30)
[2019-01-09] MEDS ORDERED: ROPIVACAINE 0.5 % 30 ML VIAL ONE (19:34)
[2019-01-09] MEDS ORDERED: METOCLOPRAMIDE 10 MG INJ ONE (19:43)
[2019-01-09] MEDS ORDERED: HYDROmorphONE 2 MG/ML SYG ONE (19:43)
[2019-01-09] MEDS ORDERED: PROPOFOL 20 ML ONE (19:43)
[2019-01-09] MEDS ORDERED: ROCURONIUM 50 MG INJ ONE (19:43)
[2019-01-09] MEDS ORDERED: morphine 2 MG INJ IV PRN (20:30)
[2019-01-09] MEDS ORDERED: NEOSTIGMINE 3 MG/3 ML SYRINGE ONE (20:31)
[2019-01-09] MEDS ORDERED: GLYCOPYRROLATE 0.4 MG INJ ONE (20:31)
[2019-01-09] MEDS: HYDROmorphONE 1 MG/5 ML IV SYRINGE IV PRN ×2 (21:38→21:57)
[2019-01-09] MEDS: OXYCODONE/ACETAMINOPHEN (5/325) TAB PO PRN (23:33)
[2019-01-10] VITALS (9 sets, daily range): BP systolic 94–126; BP diastolic 57–94; PULSE 77–102; RESP 18–20; Ht 157.5 cm; Wt 110.0 kg
[2019-01-10] MEDS: OXYCODONE/ACETAMINOPHEN (5/325) TAB PO PRN ×6 (03:27→21:35)
[2019-01-10] MEDS ORDERED: DEXTROSE 50% 50 ML SYRINGE IV PRN ×2 (07:00)
[2019-01-10] MEDS ORDERED: GLUCOSE GEL 15 GRAM TUBE BUCCAL PRN (07:00)
[2019-01-10] MEDS ORDERED: GLUCOSE GEL 15 GRAM TUBE PO PRN ×2 (07:00)
[2019-01-10] MEDS ORDERED: GLUCAGON 1 MG INJ IM PRN (07:00)
[2019-01-10] MEDS: INSULIN ASPART [NOVOLOG] 3 ML PEN SC SCH ×4 (07:30→21:00)
[2019-01-11] VITALS (7 sets, daily range): BP systolic 81–123; BP diastolic 44–81; PULSE 83–116; RESP 18–20
[2019-01-11] MEDS: ACCU-CHEK XX SCH (02:00)
[2019-01-11] MEDS: OXYCODONE/ACETAMINOPHEN (5/325) TAB PO PRN ×2 (07:16→15:29)
[2019-01-11] MEDS: INSULIN ASPART [NOVOLOG] 3 ML PEN SC SCH ×4 (07:30→20:49)
[2019-01-11] MEDS: traMADol 50 MG TAB PO PRN ×2 (13:41→19:28)
[2019-01-11] MEDS: HEPARIN 5,000 UNIT/1 ML VIAL SC SCH (20:47)
[2019-01-12] MEDS: traMADol 50 MG TAB PO PRN (01:54)
[2019-01-12] MEDS: ACCU-CHEK XX SCH (02:00)
[2019-01-12] MEDS: OXYCODONE/ACETAMINOPHEN (5/325) TAB PO PRN ×3 (02:39→13:59)
[2019-01-12 02:56] VITALS: BP 106/62; PULSE 88; RESP 18
[2019-01-12] MEDS: INSULIN ASPART [NOVOLOG] 3 ML PEN SC SCH ×2 (07:30→11:30)
[2019-01-12 09:02] VITALS: BP 114/67; PULSE 120; RESP 18
[2019-01-12] MEDS ORDERED: BISACODYL (EC) 5 MG TAB PO PRN (13:30)
[2019-01-12] MEDS: HEPARIN 5,000 UNIT/1 ML VIAL SC SCH ×2 (14:22→20:23)
[2019-01-12] MEDS ORDERED: BISACODYL 10 MG SUPP PR PRN (15:30)
[2019-01-12 16:55] VITALS: BP 114/57; PULSE 97
[2019-01-12] MEDS: POLYETHYLENE GLYCOL 17 GM PACKET PO SCH (17:06)
[2019-01-12 21:00] VITALS: BP 105/52; PULSE 90; RESP 18
[2019-01-13 01:13] VITALS: BP 108/65; PULSE 74; RESP 17
[2019-01-13] MEDS: OXYCODONE/ACETAMINOPHEN (5/325) TAB PO PRN ×2 (03:43→16:47)
[2019-01-13 07:19] VITALS: BP 123/72; PULSE 82; RESP 17
[2019-01-13] MEDS: HEPARIN 5,000 UNIT/1 ML VIAL SC SCH (09:58)
[2019-01-13] MEDS: POLYETHYLENE GLYCOL 17 GM PACKET PO SCH (09:58)
[2019-01-13 15:24] VITALS: BP 126/78; PULSE 78; RESP 18
== END 2019-01-13 17:45 | disposition home or self-care (01) | DRG 354 ==
LOC: E/R 11:26 → REC 16:54 → MS1 01-10 00:21
PROVIDERS: ADMIT Internal Medicine; ATTEND Internal Medicine
PROC: 0DBU0ZZ Excision of Omentum, Open Approach (ICD-10-PCS; 2019-01-09)
PROC: 0WUF0JZ Supplement Abdominal Wall with Synthetic Substitute, Open Approach (ICD-10-PCS; principal; 2019-01-09 18:30)
DX: K42.0 Umbilical hernia with obstruction, without gangrene (principal); K56.609 Unspecified intestinal obstruction, unspecified as to partial versus complete obstruction; D62 Acute posthemorrhagic anemia; E11.9 Type 2 diabetes mellitus without complications; Z88.0 Allergy status to penicillin
CPT/HCPCS: 36415; 74176; 80048; 80053; 81025; 82962; 83690; 85025; 88305; 97162; C1781; J1170; J1644; J1815; J1956; J2405; J2710; J2765; J2795